=== PATIENT | male | born 1960 | race African-American/Black ===

== ENCOUNTER 2019-02-13 18:44 | Inpatient (IN) | payer MEDICAID, OTHER ==
[~2019-02-13] VITALS: Ht 175.3 cm; Wt 92.1 kg
[2019-02-13] MEDS ORDERED: ONDANSETRON HCL 4MG/2ML INJ IV STA (18:47)
[2019-02-13] MEDS ORDERED: ASPI-986 PO (18:57)
[2019-02-13 19:14] LABS: CHLORIDE 110 mEq/L (98-107)
[2019-02-13 19:15] LABS: PROTHROMBIN TIME 10.7 sec (9.6-11.0)
[2019-02-13 19:18] LABS: ETHANOL BLOOD < 10 mg/dL
[2019-02-13 19:21] LABS: LDL CHOLESTEROL 91 mg/dL (5-100)
[2019-02-13 19:45] LABS: BASOPHILS % 0.7 % (0.0-2.0); HEMATOCRIT. 43.2 % (42.0-52.0); HEMOGLOBIN. 14.2 g/dL (14.0-18.0); LYMPHOCYTES % 23.3 % (20.0-50.0); MEAN CORPUSCULAR HEMOGLOBIN 29.4 pg (28.0-32.0); MEAN CORPUSCULAR VOLUME 89.6 fL (80.0-94.0); MEAN PLATELET VOLUME 7.8 fl (7.4-10.4); MONOCYTES % 10.1 % (2.0-8.0); NEUTROPHILS % 64.9 % (40.0-76.0); PLATELET 271 x1000/uL (130-400); RED BLOOD CELL COUNT 4.82 mill/uL (4.7-6.1); RED CELL DISTRIBUTION WIDTH 15.8 % (11.6-14.6)
[2019-02-13] MEDS ORDERED: ASPIRIN 325MG TABLET PO ONE (20:30)
[2019-02-13] MEDS ORDERED: IOHEXOL-350 100 ML BOTTLE ONE (20:33)
[2019-02-13] MEDS ORDERED: HYDRALAZINE 20MG/ML VIAL IV ONE (20:45)
[2019-02-13 22:00] VITALS: BP 158/101
[2019-02-13] MEDS ORDERED: ZOLPIDEM TARTRATE 5MG TABLET PO PRN (22:00)
[2019-02-13] MEDS ORDERED: NITROGLYCERIN 0.4MG TABLET SL SL PRN (22:00)
[2019-02-13] MEDS ORDERED: DOCUSATE SODIUM 100MG CAPSULE PO PRN (22:00)
[2019-02-13] MEDS ORDERED: ONDANSETRON HCL 4MG/2ML INJ IV PRN (22:00)
[2019-02-13] MEDS ORDERED: KETOROLAC 15MG/ML VIAL IV PRN (22:00)
[2019-02-13] MEDS ORDERED: ACETAMINOPHEN 325MG TABLET PO PRN (22:00)
[2019-02-13] MEDS ORDERED: LORAZEPAM 0.5MG TABLET PO PRN (22:00)
[2019-02-13] MEDS ORDERED: MAGNESIUM/ALUMINUM HYDROXIDE/SIMETHICONE 30ML UDC PO PRN (22:00)
[2019-02-13] MEDS ORDERED: GUAIFENESIN 200MG/10ML SUGAR FREE UDC PO PRN (22:00)
[2019-02-13] MEDS ORDERED: IPRATROPIUM/ALBUTEROL 0.5-3(2.5)MG/3ML NEB NEB PRN (22:00)
[2019-02-13] MEDS ORDERED: CLONIDINE 0.1MG TABLET PO PRN (22:15)
[2019-02-13] MEDS: CLONIDINE 0.1MG TABLET PO PRN (22:24)
[2019-02-13 22:56] VITALS: BP 158/96
[2019-02-13 22:58] LABS: T4 FREE 1.01 ng/dL (0.76-1.46)
[2019-02-13 23:14] LABS: VITAMIN B12 SERUM 294 pg/mL (211-911)
[2019-02-13 23:15] LABS: FOLIC ACID (FOLATE) SERUM > 20.00 ng/mL (>5.38)
[2019-02-14] VITALS (12 sets, daily range): BP systolic 124–153; BP diastolic 62–95
[2019-02-14 00:18] LABS: CLARITY URINE CLEAR (CLEAR); COLOR URINE YELLOW (YELLOW); KETONES URINE NEGATIVE (NEGATIVE); LEUKOCYTE ESTERASE URINE NEGATIVE (NEGATIVE); NITRITE URINE NEGATIVE (NEGATIVE); OCCULT BLOOD URINE NEGATIVE (NEGATIVE); PH URINE 6.5 (4.5-8.0); PROTEIN URINE NEGATIVE (NEGATIVE); SPECIFIC GRAVITY URINE 1.068 (1.005-1.030); UROBILINOGEN URINE 0.2 E.U./dL (0.2-1.0)
[2019-02-14 00:34] LABS: CANNABINOID URINE SCREEN NEGATIVE (NEGATIVE); METHADONE URINE SCREEN NEGATIVE (NEGATIVE); OPIATES URINE SCREEN NEGATIVE (NEGATIVE); PHENCYCLIDINE URINE SCREEN NEGATIVE (NEGATIVE)
[2019-02-14 00:35] LABS: *AMPHETAMINES SCREEN URINE NEGATIVE (NEGATIVE); *BARBITURATES SCREEN URINE NEGATIVE (NEGATIVE); *BENZODIAZEPINES SCREEN URINE NEGATIVE (NEGATIVE); *COCAINE SCREEN URINE NEGATIVE (NEGATIVE)
[2019-02-14 07:28] LABS: CREATINE KINASE MB FRACTION 1.3 ng/mL (0.5-3.6)
[2019-02-14] MEDS: METOPROLOL TARTRATE 25MG TABLET PO SCH ×2 (09:42→21:45)
[2019-02-14] MEDS: FAMOTIDINE 20MG TABLET PO SCH ×2 (09:43→21:44)
[2019-02-14] MEDS: ENOXAPARIN 40MG/0.4ML SYR SUBCUT SCH (09:43)
[2019-02-14] MEDS: CLOPIDOGREL 75MG TABLET PO SCH (09:43)
[2019-02-14 17:07] LABS: CREATINE KINASE MB FRACTION 1.2 ng/mL (0.5-3.6)
[2019-02-15] VITALS (14 sets, daily range): BP systolic 104–182; BP diastolic 78–108
[2019-02-15] MEDS: FAMOTIDINE 20MG TABLET PO SCH ×2 (08:38→20:25)
[2019-02-15] MEDS: METOPROLOL TARTRATE 25MG TABLET PO SCH ×2 (08:39→20:25)
[2019-02-15] MEDS: CLOPIDOGREL 75MG TABLET PO SCH (08:39)
[2019-02-15] MEDS: ENOXAPARIN 40MG/0.4ML SYR SUBCUT SCH (08:40)
[2019-02-15] MEDS ORDERED: REGADENOSON 0.4 MG/5 ML IV ONE ×2 (10:45→11:36)
[2019-02-15] MEDS: CLONIDINE 0.1MG TABLET PO PRN (13:17)
[2019-02-15 14:54] LABS: BASOPHILS % 0.6 % (0.0-2.0); EOSINOPHILS % 2.3 % (0.0-5.0); HEMATOCRIT. 41.4 % (42.0-52.0); HEMOGLOBIN. 13.7 g/dL (14.0-18.0); MEAN CORPUSCULAR HEMOGLOBIN 29.2 pg (28.0-32.0); MEAN CORPUSCULAR VOLUME 88.3 fL (80.0-94.0); MEAN PLATELET VOLUME 7.7 fl (7.4-10.4); MONOCYTES % 11.9 % (2.0-8.0); NEUTROPHILS % 62.2 % (40.0-76.0); PLATELET 293 x1000/uL (130-400); RED BLOOD CELL COUNT 4.69 mill/uL (4.7-6.1); RED CELL DISTRIBUTION WIDTH 15.4 % (11.6-14.6)
[2019-02-15 15:43] LABS: CHLORIDE 106 mEq/L (98-107)
[2019-02-15] MEDS ORDERED: CLOP75TA4 MT (17:12)
[2019-02-15] MEDS ORDERED: FAMO-135 PO (17:12)
[2019-02-15] MEDS ORDERED: METO25TA6 PO (17:14)
[2019-02-16] VITALS (12 sets, daily range): BP systolic 134–166; BP diastolic 59–97
[2019-02-16] MEDS: CLOPIDOGREL 75MG TABLET PO SCH (08:34)
[2019-02-16] MEDS: ENOXAPARIN 40MG/0.4ML SYR SUBCUT SCH (08:35)
[2019-02-16] MEDS: FAMOTIDINE 20MG TABLET PO SCH ×2 (08:35→20:35)
[2019-02-16] MEDS: METOPROLOL TARTRATE 25MG TABLET PO SCH ×2 (08:35→20:38)
[2019-02-16] MEDS: ASPIRIN 325MG EC TABLET PO SCH (11:40)
[2019-02-16] MEDS: ATORVASTATIN CALCIUM 10MG TABLET PO SCH (20:35)
[2019-02-17 01:09] VITALS: BP 165/105
[2019-02-17 04:00] VITALS: BP 133/79
[2019-02-17] MEDS: METOPROLOL TARTRATE 25MG TABLET PO SCH ×2 (08:29→21:07)
[2019-02-17] MEDS: ENOXAPARIN 40MG/0.4ML SYR SUBCUT SCH ×2 (08:29→08:45)
[2019-02-17] MEDS: ASPIRIN 325MG EC TABLET PO SCH (08:29)
[2019-02-17] MEDS: CLOPIDOGREL 75MG TABLET PO SCH (08:29)
[2019-02-17] MEDS: CLONIDINE 0.1MG TABLET PO PRN (08:42)
[2019-02-17] MEDS: FAMOTIDINE 20MG TABLET PO SCH ×2 (08:42→21:08)
[2019-02-17 09:18] VITALS: BP 184/103
[2019-02-17 09:47] LABS: BASOPHILS % 0.3 % (0.0-2.0); EOSINOPHILS % 2.8 % (0.0-5.0); HEMATOCRIT. 40.5 % (42.0-52.0); HEMOGLOBIN. 13.6 g/dL (14.0-18.0); LYMPHOCYTES % 31.2 % (20.0-50.0); MEAN CORPUSCULAR HEMOGLOBIN 29.5 pg (28.0-32.0); MEAN CORPUSCULAR VOLUME 88.1 fL (80.0-94.0); MEAN PLATELET VOLUME 7.7 fl (7.4-10.4); MONOCYTES % 12.7 % (2.0-8.0); PLATELET 295 x1000/uL (130-400); RED CELL DISTRIBUTION WIDTH 15.6 % (11.6-14.6)
[2019-02-17 09:56] LABS: CHLORIDE 109 mEq/L (98-107)
[2019-02-17 12:00] VITALS: BP 151/79
[2019-02-17 16:00] VITALS: BP 145/82
[2019-02-17 20:00] VITALS: BP 146/94
[2019-02-17] MEDS: ATORVASTATIN CALCIUM 10MG TABLET PO SCH (21:08)
[2019-02-18] VITALS: BP 138/80
[2019-02-18 04:00] VITALS: BP 136/72
[2019-02-18 07:09] LABS: BASOPHILS % 0.6 % (0.0-2.0); EOSINOPHILS % 3.9 % (0.0-5.0); HEMOGLOBIN. 13.5 g/dL (14.0-18.0); LYMPHOCYTES % 35.2 % (20.0-50.0); MEAN CORPUSCULAR HEMOGLOBIN 29.1 pg (28.0-32.0); MEAN CORPUSCULAR VOLUME 88.5 fL (80.0-94.0); MEAN PLATELET VOLUME 7.7 fl (7.4-10.4); MONOCYTES % 10.9 % (2.0-8.0); NEUTROPHILS % 49.4 % (40.0-76.0); PLATELET 285 x1000/uL (130-400); RED BLOOD CELL COUNT 4.63 mill/uL (4.7-6.1); RED CELL DISTRIBUTION WIDTH 15.7 % (11.6-14.6)
[2019-02-18 07:30] VITALS: BP 156/94
[2019-02-18 07:49] LABS: CHLORIDE 108 mEq/L (98-107)
[2019-02-18] MEDS ORDERED: SODIUM CHLORIDE 0.45% 1,000 ML IV SCH (08:00)
[2019-02-18] MEDS: METOPROLOL TARTRATE 25MG TABLET PO SCH (08:41)
[2019-02-18] MEDS: ASPIRIN 325MG EC TABLET PO SCH (08:41)
[2019-02-18] MEDS: CLOPIDOGREL 75MG TABLET PO SCH ×2 (08:42→14:46)
[2019-02-18] MEDS: FAMOTIDINE 20MG TABLET PO SCH ×2 (08:42→21:31)
[2019-02-18 09:00] VITALS: BP 130/93
[2019-02-18] MEDS ORDERED: NICARDIPINE 100MCG/ML 10ML VIAL (CATH LAB) IV ONE (09:00)
[2019-02-18] MEDS ORDERED: HEPARIN SODIUM 1,000 UNIT/1ML VIAL IV ONE (09:00)
[2019-02-18] MEDS ORDERED: NITROGLYCERIN 50MCG/ML 10ML VIAL (CATH LAB) IV ONE (09:00)
[2019-02-18] MEDS ORDERED: FENTANYL CITRATE/PF 50MCG/ML 2ML VIAL ONE (09:54)
[2019-02-18] MEDS ORDERED: MIDAZOLAM HCL 2 MG/2 ML VIAL ONE (09:54)
[2019-02-18] MEDS ORDERED: IODIXANOL 320MG/ML 100 ML BOTTLE IV ONE (09:55)
[2019-02-18] MEDS ORDERED: LIDOCAINE HCL 1% 20ML VIAL (Pyxis) INJ ONE (09:55)
[2019-02-18] MEDS ORDERED: ATROPINE SULFATE 1MG/10ML SYR IV PRN ×2 (11:00)
[2019-02-18] MEDS ORDERED: ACETAMINOPHEN 325MG TABLET PO PRN ×2 (11:00)
[2019-02-18] MEDS: BENAZEPRIL 10MG TABLET PO SCH (14:46)
[2019-02-18 16:00] VITALS: BP 136/87
[2019-02-18 20:00] VITALS: BP 149/96
[2019-02-18] MEDS: ATORVASTATIN CALCIUM 40MG TABLET PO SCH (21:32)
[2019-02-18] MEDS: CARVEDILOL 6.25 MG TABLET PO SCH (21:32)
[2019-02-19] VITALS: BP 139/97
[2019-02-19] MEDS: CLONIDINE 0.1MG TABLET PO PRN (00:11)
[2019-02-19 04:00] VITALS: BP 131/78
[2019-02-19 08:00] VITALS: BP 132/85
[2019-02-19] MEDS: CARVEDILOL 6.25 MG TABLET PO SCH ×2 (09:27→21:26)
[2019-02-19] MEDS: ASPIRIN 81MG EC TABLET PO SCH (09:27)
[2019-02-19] MEDS: CLOPIDOGREL 75MG TABLET PO SCH (09:27)
[2019-02-19] MEDS: FAMOTIDINE 20MG TABLET PO SCH ×2 (09:27→21:26)
[2019-02-19] MEDS: BENAZEPRIL 10MG TABLET PO SCH (09:27)
[2019-02-19 12:00] VITALS: BP 142/67
[2019-02-19 16:04] VITALS: BP 143/85
[2019-02-19 16:53] LABS: BASOPHILS % 0.9 % (0.0-2.0); EOSINOPHILS % 2.5 % (0.0-5.0); HEMATOCRIT. 41.5 % (42.0-52.0); HEMOGLOBIN. 13.8 g/dL (14.0-18.0); LYMPHOCYTES % 23.3 % (20.0-50.0); MEAN CORPUSCULAR HEMOGLOBIN 29.5 pg (28.0-32.0); MEAN CORPUSCULAR VOLUME 88.9 fL (80.0-94.0); MEAN PLATELET VOLUME 7.7 fl (7.4-10.4); MONOCYTES % 10.8 % (2.0-8.0); NEUTROPHILS % 62.5 % (40.0-76.0); PLATELET 290 x1000/uL (130-400); RED BLOOD CELL COUNT 4.67 mill/uL (4.7-6.1); RED CELL DISTRIBUTION WIDTH 15.7 % (11.6-14.6)
[2019-02-19 17:03] LABS: CHLORIDE 109 mEq/L (98-107)
[2019-02-19 20:00] VITALS: BP 154/92
[2019-02-19] MEDS: ATORVASTATIN CALCIUM 40MG TABLET PO SCH (21:26)
[2019-02-20] VITALS (7 sets, daily range): BP systolic 123–167; BP diastolic 41–99
[2019-02-20] MEDS: ASPIRIN 81MG EC TABLET PO SCH (09:04)
[2019-02-20] MEDS: FAMOTIDINE 20MG TABLET PO SCH ×2 (09:04→21:55)
[2019-02-20] MEDS: CLOPIDOGREL 75MG TABLET PO SCH (09:04)
[2019-02-20] MEDS: BENAZEPRIL 10MG TABLET PO SCH (09:05)
[2019-02-20] MEDS: CARVEDILOL 6.25 MG TABLET PO SCH ×2 (09:05→21:55)
[2019-02-20] MEDS: ATORVASTATIN CALCIUM 40MG TABLET PO SCH (21:55)
[2019-02-21] VITALS: BP 148/88
[2019-02-21 04:00] VITALS: BP 149/97
[2019-02-21 08:00] VITALS: BP 144/93
[2019-02-21] MEDS: ASPIRIN 81MG EC TABLET PO SCH (09:14)
[2019-02-21] MEDS: CARVEDILOL 6.25 MG TABLET PO SCH (09:14)
[2019-02-21] MEDS: FAMOTIDINE 20MG TABLET PO SCH (09:14)
[2019-02-21] MEDS: CLOPIDOGREL 75MG TABLET PO SCH (09:14)
[2019-02-21] MEDS: BENAZEPRIL 10MG TABLET PO SCH (09:15)
[2019-02-21 12:00] VITALS: BP 145/90
[2019-02-21 16:00] VITALS: BP 140/82
[2019-02-21 16:33] VITALS: BP 142/82
[2019-02-21] MEDS: CLONIDINE 0.1MG TABLET PO PRN (16:36)
== END 2019-02-21 17:00 | disposition home or self-care (01) | DRG 190 ==
LOC: ER 18:44 → 3WST 19:46 → EDBEDREQ 19:50 → EDBEDREQTM 19:50 → ENRESERV 20:19 → 7WST 02-17 00:21
PROVIDERS: ADMIT Internal Medicine; ATTEND Internal Medicine
PROC: 4A023N7 Measurement of Cardiac Sampling and Pressure, Left Heart, Percutaneous Approach (ICD-10-PCS; principal; 2019-02-18)
PROC: B2111ZZ Fluoroscopy of Multiple Coronary Arteries using Low Osmolar Contrast (ICD-10-PCS; 2019-02-18)
DX: I21.4 Non-ST elevation (NSTEMI) myocardial infarction (principal); G93.41 Metabolic encephalopathy; G45.9 Transient cerebral ischemic attack, unspecified; E16.2 Hypoglycemia, unspecified; I10 Essential (primary) hypertension; I25.10 Atherosclerotic heart disease of native coronary artery without angina pectoris; E78.00 Pure hypercholesterolemia, unspecified; Z86.73 Personal history of transient ischemic attack (TIA), and cerebral infarction without residual deficits; Z95.5 Presence of coronary angioplasty implant and graft; I25.2 Old myocardial infarction; Z79.02 Long term (current) use of antithrombotics/antiplatelets; Z59.0 Homelessness; Z79.82 Long term (current) use of aspirin; Z79.899 Other long term (current) drug therapy; Z82.49 Family history of ischemic heart disease and other diseases of the circulatory system
CPT/HCPCS: 36415; 70496; 70498; 70551; 71045; 78452; 80048; 80061; 80305; 80320; 81003; 82550; 82553; 82607; 82746; 82962; 83036; 83540; 83550; 83721; 83735; 84439; 84443; 84484; 93005; 93017; 93306; 93458; 93970; 96374; 97112; 97116; 97162; 99291; A9500; C1769; C1887; C1893; J0360; J1644; J1650; J2250; J2785; J3010; J3490; Q9967; G0480